=== PATIENT | female | born 1940 | race African-American/Black ===

== ENCOUNTER 2017-01-19 14:09 | Emergency (ER) | payer OTHER, MEDICARE, BC ==
[~2017-01-19] VITALS: Ht 157.5 cm; Wt 61.0 kg
[~2017-01-19 14:09] MED LIST: ADVIL MIGRAI200 M1 OR; AMOXICILLIN500 M2 PO; AMOXICILLIN500 MG OR; ASPIRIN EC81 MG PO; BISMUTH SUBSALICYLATE PO; BL ADULT ASA81 MG OR; CIPRODEX1 ML AU; DEPO-MEDROL80 MG/ML IM; DOXYCYC MONO100 M2 PO; FISH OIL1000 MG OR; FLEXERIL OR; FLEXERIL PO; FLONASE NASAL50 MCG; FOLIC ACID400 MC1 OR; GLIPIZIDE ER2.5 MG PO; GLIPIZIDE10 M2 PO; GLUCOVANCE5 MG/500 M OR; GLUCOVANCE5 MG/500 M PO; HYDROCHLOROT25 MG PO; JANUVIA50 MG OR; JANUVIA50 MG PO; KENALOG-4040 MG/ML IJ; LIPITOR20 MG PO; LISINOP/HCTZ1 TAB PO; LISINOPRIL10 MG PO; LORTAB 5/3255 MG PO; METFORMIN1000 MG PO; METFORMIN500 M2 PO; METHIMAZOLE5 MG PO; METRONIDAZOLE250 MG PO; MULTIVITAMI1 PO; NAPROSYN500 MG PO; NEXIUM40 M1 PO; ONDANSETRON4 MG PO; PERCOCET 5/325M1 TAB PO; PLAVIX75 MG PO; PRINZIDE1 TAB OR; SILVADENE1 % EX; SIMVASTATIN20 MG PO; TETRACYCLINE H500 MG PO; TRIAMCINOLON0.5 % EX; ULTRAM50 MG OR; ZOCOR20 MG OR; ZOCOR20 MG PO
[2017-01-19 14:44] VITALS: BP 144/84
== END 2017-01-19 14:44 | disposition home or self-care (01) | DRG 923 ==
LOC: ED 14:09
DX: Z04.1 Encounter for examination and observation following transport accident (principal); V49.49XA Driver injured in collision with other motor vehicles in traffic accident, initial encounter; Y92.414 Local residential or business street as the place of occurrence of the external cause

== ENCOUNTER 2017-03-02 14:17 | Emergency (ER) | payer MEDICARE, BC ==
[~2017-03-02] VITALS: Ht 157.5 cm; Wt 64.1 kg
[~2017-03-02 14:17] MED LIST changes: +ADLT ASA LOW81 MG PO; -ASPIRIN EC81 MG PO
[2017-03-02] MEDS ORDERED: LISINOPRIL20 MG PO (14:40)
[2017-03-02] MEDS ORDERED: LEVOTHYROXIN50 MCG PO (14:40)
[2017-03-02] MEDS ORDERED: ATORVASTATIN CA20 MG PO (14:41)
[2017-03-02] MEDS ORDERED: GLIPIZIDE5 MG PO (14:43)
[2017-03-02] MEDS ORDERED: KEFLEX500 MG PO (16:26)
[2017-03-02 16:35] VITALS: BP 141/74
== END 2017-03-02 16:35 | disposition home or self-care (01) ==
LOC: ED 14:17
DX: S80.02XA Contusion of left knee, initial encounter (principal); S80.01XA Contusion of right knee, initial encounter; S80.212A Abrasion, left knee, initial encounter; S80.211A Abrasion, right knee, initial encounter; M25.462 Effusion, left knee; W10.8XXA Fall (on) (from) other stairs and steps, initial encounter; Y93.89 Activity, other specified; Y92.242 Post office as the place of occurrence of the external cause

== ENCOUNTER 2017-03-18 08:35 | Emergency (ER) | payer MEDICARE, BC ==
[~2017-03-18] VITALS: Ht 157.5 cm; Wt 75.0 kg
[~2017-03-18 08:35] MED LIST changes: +ATORVASTATIN CA20 MG PO; +GLIPIZIDE5 MG PO; +KEFLEX500 MG PO; +LEVOTHYROXIN50 MCG PO; +LISINOPRIL20 MG PO
[2017-03-18] MEDS ORDERED: EC-NAPROSYN500 MG PO ×2 (09:38→10:03)
[2017-03-18 09:58] VITALS: BP 143/84
== END 2017-03-18 10:10 | disposition home or self-care (01) ==
LOC: ED 08:35
DX: M75.52 Bursitis of left shoulder (principal); M25.512 Pain in left shoulder; W18.39XA Other fall on same level, initial encounter; Y93.89 Activity, other specified; Y92.242 Post office as the place of occurrence of the external cause

== ENCOUNTER → 2018-06-12 | Outpatient (REF) | payer MEDICARE, BC ==
[~2018-06-12] MED LIST changes: +EC-NAPROSYN500 MG PO
[2018-06-12 08:28] LABS: URINE BILIRUBIN - DIPSTICK NEGATIVE (NEGATIVE); URINE BLOOD DIPSTICK NEGATIVE (NEGATIVE); URINE CLARITY CLEAR; URINE COLOR YELLOW; URINE GLUCOSE - DIPSTICK NEGATIVE (NEGATIVE); URINE KETONE NEGATIVE (NEGATIVE); URINE LEUK ESTERASE MODERATE (Negative); URINE NITRITE - DIPSTICK NEGATIVE (Negative); URINE PROTEIN - DIPSTICK NEGATIVE (NEG-TRACE); URINE UROBILINOGEN - DIPSTICK 0.2 E.U./dL (0.2)
[2018-06-12 08:34] LABS: HEMATOCRIT 33.1 % (37.0-47.0); HEMOGLOBIN 10.7 g/dl (12.0-16.0); IMMATURE GRANULOCYTES 0.2 % (0.0-5.0); MEAN CELL VOLUME 89.7 fL CALC (80.0-100.0); MEAN CORPUSCULAR HGB CONC 32.3 g/L CALC (32.0-36.0); NEUT# 2.88 thou/uL (2.00-7.15); RED BLOOD COUNT 3.69 mill/uL (4.20-5.60); RED CELL DISTRI WIDTH 13.2 % (11.5-15.5)
[2018-06-12 08:35] LABS: URINE SQUAMOUS EPITHELIAL CELL FEW EPI/hpf (0-FEW); URINE TRANSITIONAL EPI. CELLS FEW hpf
[2018-06-12 08:50] LABS: ALBUMIN 3.5 g/dL (3.2-5.0); BILIRUBIN, TOTAL 0.4 mg/dL (0.0-1.4); CREATININE 1.6 mg/dL (0.5-1.0); POTASSIUM 4.4 mmol/l (3.5-5.1); TOTAL PROTEIN 6.2 g/dL (6.3-8.2)
== END | disposition home or self-care (01) ==
LOC: LAB 07:55
PROVIDERS: Internal Medicine Nephrology; ATTEND Internal Medicine Endocrinology, Diabetes & Metabolism
DX: N18.3 Chronic kidney disease, stage 3 (moderate) (principal); D63.1 Anemia in chronic kidney disease; N25.81 Secondary hyperparathyroidism of renal origin; E05.90 Thyrotoxicosis, unspecified without thyrotoxic crisis or storm; E11.65 Type 2 diabetes mellitus with hyperglycemia; I10 Essential (primary) hypertension

== ENCOUNTER → 2018-10-22 | Outpatient (REF) | payer MEDICARE, BC ==
[~2018-10-22] MED LIST changes: +CALCIUM600 M3 PO; +COMBIGAN0.2 MG/0.5 OU; +IBUPROFEN600 MG PO; +METHIMAZOLE10 MG PO; +PROPYLTHIOUR50 MG PO; +TRAMADOL HYDROC50 MG PO; +TRULICITY1.5 MG/0.5 SC; +XALATAN 0.005%2.5 ML OU
[2018-10-22 09:20] LABS: TSH, 3RD GENERATION 0.65 uIU/mL (0.47 - 4.68)
== END | disposition home or self-care (01) ==
LOC: LAB 07:42
PROVIDERS: Nurse Practitioner Adult Health; ATTEND Internal Medicine Endocrinology, Diabetes & Metabolism
DX: E05.90 Thyrotoxicosis, unspecified without thyrotoxic crisis or storm (principal)

== ENCOUNTER 2018-10-23 22:13 | Inpatient (IN) | payer MEDICARE, BC ==
[~2018-10-23] VITALS: Ht 157.5 cm; Wt 67.0 kg
[~2018-10-23 22:13] MED LIST changes: -CALCIUM600 M3 PO; -COMBIGAN0.2 MG/0.5 OU; -IBUPROFEN600 MG PO; -METHIMAZOLE10 MG PO; -PROPYLTHIOUR50 MG PO; -TRAMADOL HYDROC50 MG PO; -TRULICITY1.5 MG/0.5 SC; -XALATAN 0.005%2.5 ML OU
[2018-10-23 22:42] LABS: HEMATOCRIT 33.9 % (37.0-47.0); HEMOGLOBIN 11.3 g/dl (12.0-16.0); IMMATURE GRANULOCYTES 0.7 % (0.0-5.0); MEAN CELL VOLUME 87.1 fL CALC (80.0-100.0); MEAN CORPUSCULAR HGB CONC 33.3 g/L CALC (32.0-36.0); NEUT# 10.14 thou/uL (2.00-7.15); RED BLOOD COUNT 3.89 mill/uL (4.20-5.60); RED CELL DISTRI WIDTH 13.5 % (11.5-15.5)
[2018-10-23 23:24] LABS: AMYLASE 128 u/l (30-110); ANION GAP 18 (6-22 (CALC)); BILIRUBIN, TOTAL 0.6 mg/dL (0.0-1.4); BUN 26 mg/dL (8-23); BUN/CREATININE RATIO 19 (12-20 (CALC)); CARBON DIOXIDE 22 mmol/l (22-30); CHLORIDE 102 mmol/l (95-108); CREATININE 1.4 mg/dL (0.5-1.0); GFR 37 ML/MIN (>=60 (CALC)); GFR FOR AFR.AMER. 44 ML/MIN (>=60 (CALC)); LIPASE 111 u/l (23-300); POTASSIUM 4.6 mmol/l (3.5-5.1); SGOT/AST 30 u/l (9-36); SODIUM 137 mmol/l (137-146); TOTAL PROTEIN 7.3 g/dL (6.3-8.2)
[2018-10-23 23:28] LABS: ALBUMIN 4.4 g/dL (3.2-5.0); ALKALINE PHOSPHATASE 100 u/l (38-126)
[2018-10-23 23:36] LABS: MYOGLOBIN 27 ng/mL (0 - 62)
[2018-10-23] MEDS ORDERED: METHIMAZOLE10 MG PO (23:50)
[2018-10-24] VITALS (11 sets, daily range): BP systolic 144–182; BP diastolic 61–90
[2018-10-24] MEDS ORDERED: IBUPROFEN600 MG PO (00:25)
[2018-10-24] MEDS ORDERED: CALCIUM600 M3 PO (00:26)
[2018-10-24] MEDS ORDERED: TRAMADOL HYDROC50 MG PO (00:28)
[2018-10-24] MEDS ORDERED: PROPYLTHIOUR50 MG PO (00:29)
[2018-10-24 01:21] LABS: URINE BILIRUBIN - DIPSTICK NEGATIVE (NEGATIVE); URINE BLOOD DIPSTICK NEGATIVE (NEGATIVE); URINE COLOR YELLOW; URINE GLUCOSE - DIPSTICK >=1000 mg/dL (NEGATIVE); URINE KETONE 15 mg/dL (NEGATIVE); URINE LEUK ESTERASE NEGATIVE (NEGATIVE); URINE NITRITE - DIPSTICK NEGATIVE (Negative); URINE PH 6.5 (4.5-8.0); URINE PROTEIN - DIPSTICK NEGATIVE (NEG-TRACE); URINE SPECIFIC GRAVITY 1.015; URINE UROBILINOGEN - DIPSTICK 0.2 E.U./dL (0.2)
[2018-10-24] MEDS ORDERED: TRULICITY1.5 MG/0.5 SC (14:05)
[2018-10-24] MEDS ORDERED: COMBIGAN0.2 MG/0.5 OU (14:06)
[2018-10-24] MEDS ORDERED: XALATAN 0.005%2.5 ML OU (14:07)
== END 2018-10-24 16:02 | disposition short-term general hospital (02) | DRG 281 ==
LOC: ED 22:13 → ED-I 10-24 → ED 10-24 00:28 → ICU 10-24 00:29
PROVIDERS: Family Medicine; ADMIT Internal Medicine; ATTEND Internal Medicine
DX: I21.4 Non-ST elevation (NSTEMI) myocardial infarction (principal); N25.81 Secondary hyperparathyroidism of renal origin; I12.9 Hypertensive chronic kidney disease with stage 1 through stage 4 chronic kidney disease, or unspecified chronic kidney disease; N18.3 Chronic kidney disease, stage 3 (moderate); I25.10 Atherosclerotic heart disease of native coronary artery without angina pectoris; D63.1 Anemia in chronic kidney disease; Z95.5 Presence of coronary angioplasty implant and graft; E05.90 Thyrotoxicosis, unspecified without thyrotoxic crisis or storm
CPT/HCPCS: J1650

== ENCOUNTER 2019-03-15 12:19 | Observation (INO) | payer MEDICARE, BC ==
[~2019-03-15] VITALS: Ht 157.5 cm; Wt 63.2 kg
[~2019-03-15 12:19] MED LIST changes: +CALCIUM600 M3 PO; +COMBIGAN0.2 MG/0.5 OU; +IBUPROFEN600 MG PO; +METHIMAZOLE10 MG PO; +PROPYLTHIOUR50 MG PO; +TRAMADOL HYDROC50 MG PO; +TRULICITY1.5 MG/0.5 SC; +XALATAN 0.005%2.5 ML OU
--- NOTE | 2019-03-15 12:30 | NUR ---
PT TO ROOM VIA WHEELCHAIR FOR BEDSIDE TRIAGE.
[2019-03-15 13:11] LABS: HEMATOCRIT 36.7 % (37.0-47.0); IMMATURE GRANULOCYTES 0.3 % (0.0-5.0); MEAN CELL VOLUME 85.9 fL CALC (80.0-100.0); MEAN CORPUSCULAR HGB 28.1 pG CALC (26.0-32.0); MEAN CORPUSCULAR HGB CONC 32.7 g/L CALC (32.0-36.0); NEUT# 4.33 thou/uL (2.00-7.15); RED BLOOD COUNT 4.27 mill/uL (4.20-5.60); RED CELL DISTRI WIDTH 12.9 % (11.5-15.5)
--- NOTE | 2019-03-15 13:11 | NUR ---
PT ALERT AND ORIENTED C/O GENERALIZED LOWER ABD DICOMFORT AND WEAKNESS. PT C/O NAUSEA.
--- NOTE | 2019-03-15 13:15 | NUR ---
HOLDING LABETOLOL BP IOS TRENDING DOWN PWE [facility]NEY
[2019-03-15 13:28] LABS: ALBUMIN 3.9 g/dL (3.2-5.0); CREATININE 1.3 mg/dL (0.5-1.0); POTASSIUM 4.5 mmol/l (3.5-5.1); TOTAL PROTEIN 6.7 g/dL (6.3-8.2)
[2019-03-15 13:33] LABS: BILIRUBIN, TOTAL 0.6 mg/dL (0.0-1.4)
[2019-03-15] MEDS ORDERED: FLUOXETINE20 MG PO (13:54)
[2019-03-15] MEDS ORDERED: LANTUS100 UNIT/M SC (13:57)
[2019-03-15] MEDS ORDERED: METOPROL TAR25 MG PO (14:02)
[2019-03-15] MEDS ORDERED: FISH OIL1000 MG PO (14:06)
--- NOTE | 2019-03-15 14:15 | NUR ---
PT RESTING COMFORTABLY WITH HOB ELEVATED, IN NO ACITE DISTRESS. VSS. DENIES NAUSEA
[2019-03-15 14:43] LABS: URINE BILIRUBIN - DIPSTICK NEGATIVE (NEGATIVE); URINE BLOOD DIPSTICK NEGATIVE (NEGATIVE); URINE COLOR YELLOW; URINE GLUCOSE - DIPSTICK NEGATIVE (NEGATIVE); URINE KETONE NEGATIVE (NEGATIVE); URINE LEUK ESTERASE NEGATIVE (NEGATIVE); URINE NITRITE - DIPSTICK NEGATIVE (Negative); URINE PROTEIN - DIPSTICK NEGATIVE (NEG-TRACE); URINE UROBILINOGEN - DIPSTICK 0.2 E.U./dL (0.2)
[2019-03-15] MEDS ORDERED: COMBIGAN0.2 MG/0.5 OU (15:11)
--- NOTE | 2019-03-15 15:22 | NUR ---
PT RESTING IN BED IN NO ACUTE DISTRESS, PT STATES SHE "FEELS WEAK". VSS. DAUGHTER AT BEDSIDE. AWARE OF ADMIT AND AGREEABLE
--- NOTE | 2019-03-15 15:45 | NUR ---
DR CRANE AT BEDSIDE
--- NOTE | 2019-03-15 16:11 | NUR ---
CALLED REPORT TO FELICE GANDHI MS
--- NOTE | 2019-03-15 16:30 | NUR ---
TRANSPORTED TO CT VIA STRETCHER ON TELEMETRY IN STABLE CONDITION. ALERT AND CONVERSIVE.
[2019-03-15 16:31] VITALS: BP 184/72
--- NOTE | 2019-03-15 16:52 | NUR ---
NOTIFIED JESSICA ALMARAZ RE: PT BP 184/72. ORDERS RECEIVED.
--- NOTE | 2019-03-15 17:15 | NUR ---
ASSESSMENT DONE . TELE IN PLACE. PT IS A&O X3. IVF INFSUING WELL. PT DENIES PAIN AT THIS TIME. RESPS EVEN AND UNLABORED. PO FLUIDS PROVIDED. SAFETY PRECAUTIONS REINFORCED AND CALL LIGHT IN REACH.
[2019-03-15 17:22] LABS: TSH, 3RD GENERATION 0.23 uIU/mL (0.47 - 4.68)
--- NOTE | 2019-03-15 19:05 | NUR ---
REPORT RECEIVED FROM DAY NURSE. PT IS IN HIGH FOWLERS POSITION W/FAMILY AT BEDSIDE. POC DISCUSSED W/PT. CALL LIGHT AT SIDE.
[2019-03-15 19:14] VITALS: BP 113/54
[2019-03-15 20:44] VITALS: BP 124/73
--- NOTE | 2019-03-15 20:47 | NUR ---
PT MEDICATED AND ASSESSED AT THIS TIME. LUNG SOUNDS ARE CLEAR, ABD SOFT NON-TENDER W/HYPERACTIVE BOWEL SOUNDS. PT LOCX3. SKIN IS INTACT, NEURO'S INTACT. PT REPOSITIONED IN BED. CALL LIGHT IS W/IN REACH AND PT ENCOURAGED TO CALL IF ANY NEEDS ARISE OR IF SHE NEEDS TO GET UP.
--- NOTE | 2019-03-15 22:45 | NUR ---
PT ASSISTED TO RESTROOM AND BACK TO BE NO S/O DISTRESS NOTED, CALL LIGHT AT SIDE. PT CALLED FOR ASSISTANCE, LOCX3
[2019-03-16 00:03] VITALS: BP 119/64
--- NOTE | 2019-03-16 01:00 | NUR ---
IV FLUIDS REPLENISHED AT THIS TIME. PT IS SLEEPING, NO S/O DISTRESS NOTED. CALL LIGHT IS AT SIDE.
--- NOTE | 2019-03-16 03:30 | NUR ---
PT IS SLEEPING SOUNDLY NO S/O DISTRESS NOTED. CALL LIGHT AT SIDE.
[2019-03-16 04:15] VITALS: BP 119/57
[2019-03-16 05:22] LABS: HEMATOCRIT 33.5 % (37.0-47.0); HEMOGLOBIN 10.9 g/dl (12.0-16.0); IMMATURE GRANULOCYTES 0.1 % (0.0-5.0); MEAN CELL VOLUME 86.8 fL CALC (80.0-100.0); MEAN CORPUSCULAR HGB 28.2 pG CALC (26.0-32.0); MEAN CORPUSCULAR HGB CONC 32.5 g/L CALC (32.0-36.0); NEUT# 4.27 thou/uL (2.00-7.15); RED BLOOD COUNT 3.86 mill/uL (4.20-5.60); RED CELL DISTRI WIDTH 12.9 % (11.5-15.5)
[2019-03-16 05:39] LABS: CREATININE 1.2 mg/dL (0.5-1.0); MAGNESIUM 2.2 mg/dL (1.6-2.3)
[2019-03-16 05:45] LABS: POTASSIUM 3.5 mmol/l (3.5-5.1)
[2019-03-16 08:00] VITALS: BP 162/74
--- NOTE | 2019-03-16 08:00 | NUR ---
REPORT WAS RECEIVED FROM KELLI. ASSESSMENT DONE. TELE IN PLACE. PT IS A&O X3. PT DENIES PAIN AT THIS TIME. RESPS EVEN AND UNLABORED. IVF INFSUING WELL. PT DENIES NEEDS AT THIS TIME. SAFETY PRECAUTIONS REINFORCED AND CALL LIGHT IN REACH.
[2019-03-16 11:04] VITALS: BP 148/71
--- NOTE | 2019-03-16 11:08 | NUR ---
PT IS SITTTING IN THE CHAIR WITH NO S/S OF DISTRESS NOTED. PT DENIES PAIN AT THIS TIME. DAUGHTER IN ROOM. CALL LIGHT IN REACH.
[2019-03-16] MEDS ORDERED: GLIPIZIDE5 MG PO (13:35)
--- NOTE | 2019-03-16 14:26 | NUR ---
Discharge instructions given. Patient verbalizes understanding of same. Discharged in stable condition via Wheelchair to Home with family. All belongings sent with pt.
--- NOTE | 2019-03-16 15:28 | NUR ---
Attempted to see patient but she had already DC
== END 2019-03-16 14:26 | disposition home or self-care (01) ==
LOC: ED 12:19 → ED-I 14:52 → ED 15:09 → MS2 15:10
PROVIDERS: Family Medicine; Nurse Practitioner Family; ADMIT Internal Medicine; ATTEND Internal Medicine
DX: R53.1 Weakness (principal); R53.83 Other fatigue; R62.7 Adult failure to thrive; R63.0 Anorexia; R10.84 Generalized abdominal pain; I12.9 Hypertensive chronic kidney disease with stage 1 through stage 4 chronic kidney disease, or unspecified chronic kidney disease; E11.22 Type 2 diabetes mellitus with diabetic chronic kidney disease; N18.3 Chronic kidney disease, stage 3 (moderate); E78.5 Hyperlipidemia, unspecified; E05.90 Thyrotoxicosis, unspecified without thyrotoxic crisis or storm; I25.10 Atherosclerotic heart disease of native coronary artery without angina pectoris; F32.9 Major depressive disorder, single episode, unspecified; Z95.5 Presence of coronary angioplasty implant and graft; Z79.4 Long term (current) use of insulin
CPT/HCPCS: Q9967

== ENCOUNTER 2021-10-18 22:23 | Emergency (ER) | payer MEDICARE, BC ==
[~2021-10-18] VITALS: Ht 157.5 cm; Wt 59.0 kg
[~2021-10-18 22:23] MED LIST changes: +FISH OIL1000 MG PO; +FLUOXETINE20 MG PO; +LANTUS100 UNIT/M SC; +METOPROL TAR25 MG PO
[2021-10-18 23:21] LABS: HEMATOCRIT 34.3 % (37.0-47.0); HEMOGLOBIN 11.2 g/dl (12.0-16.0); IMMATURE GRANULOCYTES 0.1 % (0.0-5.0); MEAN CELL VOLUME 89.8 fL CALC (80.0-100.0); MEAN CORPUSCULAR HGB 29.3 pG CALC (26.0-32.0); MEAN CORPUSCULAR HGB CONC 32.7 g/dL CAL (32.0-36.0); NEUT# 6.76 thou/uL (2.00-7.15); RED BLOOD COUNT 3.82 mill/uL (4.20-5.60); RED CELL DISTRI WIDTH 12.5 % (11.5-15.5)
[2021-10-18 23:28] LABS: GFR 33 ML/MIN (>=60 (CALC)); GFR FOR AFR.AMER. 41 ML/MIN (>=60 (CALC))
[2021-10-18] MEDS ORDERED: LISINOPRIL10 MG PO (23:32)
[2021-10-18] MEDS ORDERED: HYDRALAZINE10 M2 PO (23:33)
[2021-10-18] MEDS ORDERED: NORVASC5 M1 PO (23:35)
[2021-10-18] MEDS ORDERED: MIRTAZAPINE15 MG PO (23:35)
[2021-10-18] MEDS ORDERED: ZOLPIDEM5 M1 PO (23:36)
[2021-10-18 23:47] LABS: ALBUMIN 3.9 g/dL (3.2-5.0); AMYLASE 157 u/l (30-110); ANION GAP 14 (6-22 (CALC)); BILIRUBIN, TOTAL 0.3 mg/dL (0.0-1.4); BUN 24 mg/dL (8-23); BUN/CREATININE RATIO 15 (12-20 (CALC)); CARBON DIOXIDE 26 mmol/l (22-30); CHLORIDE 99 mmol/l (95-108); CREATININE 1.6 mg/dL (0.5-1.0); LIPASE 157 u/l (23-300); POTASSIUM 4.2 mmol/l (3.5-5.1); SGOT/AST 31 u/l (9-36); SODIUM 134 mmol/l (137-146); TOTAL PROTEIN 7.3 g/dL (6.3-8.2)
[2021-10-18] MEDS ORDERED: LANTUS100 UNIT SC (23:47)
[2021-10-18 23:48] LABS: ALKALINE PHOSPHATASE 92 u/l (38-126)
[2021-10-18 23:49] LABS: ACT PARTIAL THROMBO TIME 22.3 SECONDS (20.0-32.5); INTERNATIONAL NORMALIZED RATIO 0.9 RATIO (0.7-1.3); PROTHROMBIN TIME 9.9 SECONDS (9.0-12.5)
[2021-10-19 00:36] LABS: URINE BILIRUBIN - DIPSTICK NEGATIVE (NEGATIVE); URINE BLOOD DIPSTICK NEGATIVE (NEGATIVE); URINE COLOR YELLOW; URINE GLUCOSE - DIPSTICK 500 mg/dL (NEGATIVE); URINE KETONE NEGATIVE (NEGATIVE); URINE LEUK ESTERASE NEGATIVE (NEGATIVE); URINE PROTEIN - DIPSTICK NEGATIVE (NEG-TRACE); URINE UROBILINOGEN - DIPSTICK 0.2 E.U./dL (0.2)
[2021-10-19 00:38] LABS: URINE NITRITE - DIPSTICK NEGATIVE (Negative)
[2021-10-19] MEDS ORDERED: HYDROCO/APAP1 TA9 PO (00:43)
[2021-10-19 01:09] VITALS: BP 128/78
== END 2021-10-19 01:09 | disposition home or self-care (01) ==
LOC: ED 22:23
DX: R10.13 Epigastric pain (principal); I10 Essential (primary) hypertension; E11.9 Type 2 diabetes mellitus without complications; E78.5 Hyperlipidemia, unspecified; Z95.5 Presence of coronary angioplasty implant and graft; Z79.4 Long term (current) use of insulin
CPT/HCPCS: Q9967